=== PATIENT | female | born 1960 | race Caucasian/White ===

== ENCOUNTER 2018-02-07 16:45 | Emergency (ER) | payer MEDICARE ==
[2018-02-07 18:09] VITALS: BP 135/86
--- NOTE | 2018-02-07 18:11 | UC ---
Lower Extremity/Ankle HPI - HPI Summary HPI Summary: 57 y/o female presents to the urgent care accompany by son c/o left ankle pain and swelling w/ redness since 02/04/2018. Pain is 4/10 associated w/ fever on and off. Pain is sharp at times and radiates to her LF lower leg. Lateral side of her LF ankle is warm and red. Pt has been taking Tylenol/Ibuprofen PO to alleviate symptoms w/o any improvement. Last dose of Tylenol taken 1100AM. Pt states Hx of osteoarthritis in her LF knee. But denies Hx of gout or DVT. Pt denies calf pain. SOB, palpation, chest pain, abdominal pain, Numbness or tingling or recent injury or N/V/D. - History of Current Complaint Chief Complaint: UCLowerExtremity Stated Complaint: LEFT FOOT PAIN Time Seen by Provider: 02/07/18 18:09 Hx Obtained From: Patient ?: No Onset/Duration: Gradual Onset, Lasting Days - 4 days, Still Present, Worse Since - yesterday Severity Initially: Mild Severity Currently: Mild Pain Intensity: 4 Pain Scale Used: 0-10 Numeric Aggravating Factor(s): Standing, Ambulation Alleviating Factor(s): Rest, Elevation Able to Bear Weight: Yes - Risk Factors Gout Risk Factors: Negative, Age Over 40 DVT Risk Factors: Negative Septic Arthritis Risk Factor: Negative - Allergies/Home Medications Allergies/Adverse Reactions: Allergies Allergy/AdvReac Type Severity Reaction Status Date / Time No Known Allergies Allergy Verified 02/07/18 18:02 Home Medications: Home Medications Acetaminophen TAB* [Tylenol TAB*] 2 tab PO Q6H PRN 02/07/18 [History Confirmed 02/07/18] PMH/Surg Hx/FS Hx/Imm Hx Previously Healthy: Yes Other Endocrine History: RT knee osteoarthritis - Surgical History Surgical History: None - Family History Known Family History: Positive: Diabetes - Social History Occupation: Employed Full-time Lives: With Family Alcohol Use: None Substance Use Type: None Smoking Status (MU): Never Smoked Tobacco Review of Systems Constitutional: Fever, Chills Skin: Negative Eyes: Negative ENT: Negative Respiratory: Negative Cardiovascular: Negative Gastrointestinal: Negative Genitourinary: Negative Motor: Negative Neurovascular: Negative Musculoskeletal: Decreased ROM - RT ankle, Other: - RT ankle pain, swelling and red Neurological: Negative Psychological: Negative Is Patient Immunocompromised?: No All Other Systems Reviewed And Are Negative: Yes Physical Exam - Summary Physical Exam Summary: Vital Signs Reviewed: Yes General: well developed, well nourished female, sitting in the examining table w /o any apparent distress Eyes: Positive: Conjunctiva Clear - PERRLA, EOMI, ENT: Positive: Normal ENT inspection, Hearing grossly normal, Pharynx normal, TMs normal Neck: Positive: Supple, Nontender, No Lymphadenopathy Respiratory: Positive: Chest non-tender, Lungs clear, Normal breath sounds, No respiratory distress Cardiovascular: Positive: RRR, No Murmur, Pulses Normal, Brisk Capillary Refill Abdomen Description: Positive: Nontender, No Organomegaly, Soft. Negative: CVA Tenderness (R), CVA Tenderness (L) Bowel Sounds: Positive: Present Musculoskeletal:LF Ankle: Pt is able to bear weight and ambulate w/ limping. The LF ankle is without obvious asymmetry or deformity when compared to the L ankle. Decreased ROM due to pain and swelling . Moderate swelling w/ effusion at the lateral malleolus, with tenderness to palpation, warm to touch and erythema around malleollus. No ecchymosis or bruising observed. No Tenderness to palpation over the medial malleolus , no swelling observed. Talar tilt test is negative for ligament laxity to valgus or varus stress. Negative anterior drawer. Peroneal nerve is intact with strong eversion and plantar flexion. Positive sensation over the Rt foot and Rt ankle, positive pulses, capillary refill intact Neurological Exam: Normal Psychological Exam: Normal Skin: warm and dry Triage Information Reviewed: Yes Vital Signs: Initial Vital Signs Temp 100.7 F 02/07/18 17:59 Pulse 95 02/07/18 17:59 Resp 18 02/07/18 17:59 BP 135/86 02/07/18 17:59 Pulse Ox 98 02/07/18 17:59 Lower Extremity Course/Dx - Course Course Of Treatment: 57 y/o female presents to the urgent care accompany by son c/o left ankle pain and swelling w/ redness since 02/04/2018. Pain is 4/10 associated w/ fever on and off. Pain is sharp at times and radiates to her LF lower leg. Lateral side of her LF ankle is warm and red. Pt has been taking Tylenol/Ibuprofen PO to alleviate symptoms w/o any improvement. Last dose of Tylenol taken 1100AM. Pt states Hx of osteoarthritis in her LF knee. But denies Hx of gout or DVT. Pt denies calf pain. SOB, palpation, chest pain, abdominal pain, Numbness or tingling or recent injury or N/V/D. Hx obatined. Pt w/ probably w/ LF ankle cellulitis vs. septic joint vs. DVT on differential Dignosis. My recommendation is for the Pt to go to the. er for further assestment. Pt is febrile 100.7F. I presented the case and requested Dr Naqvi to see the Pt w/ me since the PT refused to go to the ER. Dr Naqvi after I presented the case she also recommended to sent the PT to the ER w/o any further examination. She recommeded to try to convinve Pt to go the [facility] ER. I explained the Pt the need to get blood work, IV ABx and probably to tap the LF ankle and the importance to get a higher level of care. I also educated on the risks of sepsis and if she doesn't go to the ER. However Pt still reluctant and requested PO ABx. Her son tried to convince her and she still refused . I discused the risks and benefist of ER treatment with the patient. She understands the risk of leaving AMA wich includes but not restricted to . Patient is A&Ox3 and verbalizes understabding. Pt signed AMA and left the clinic in the wheelchair, hemodynamically stable, A&OX3. - Differential Dx/Diagnosis Differential Diagnosis/HQI/PQRI: Arthritis, Fracture (Closed), Gout, Infection, Septic Arthritis, Sprain, Strain Provider Diagnoses: 1- Swollen LF ankle. 2-Acute LF ankle pain - Physician Notifications Discussed Patient Care With: Lian Naqvi - DR Naqvi agreed w/ Pt's plan of care Discharge - Sign-Out/Discharge Documenting (check all that apply): Discharge/Admit/Transfer - D/C AMA - Discharge Plan Condition: Stable Disposition: AGAINST MEDICAL ADVICE Patient Education Materials: Swollen Ankle Joint (ED) Referrals: No Primary Care Phys,NOPCP [Primary Care Provider] - Additional Instructions: I strongly advised you to go to the ER for further treatment. You have probably have a septic joint that may need IV antibiotic and further treatment. The risk of not going tot he ER can be sepsis, and . However you are refusing to go there and get treatment. - Billing Disposition and Condition Condition: STABLE Disposition: [facility]IDELIAA
== END 2018-02-07 18:45 | disposition left against medical advice (07) ==
LOC: UCCORT 16:45
DX: M25.572 Pain in left ankle and joints of left foot (principal); R22.42 Localized swelling, mass and lump, left lower limb
CPT/HCPCS: 99202; G0463